=== PATIENT | female | born 1945 | race Caucasian/White ===

== ENCOUNTER → 2017-07-26 | Outpatient (CLI) | payer MEDICARE, BC ==
[~2017-07-26] MED LIST: CALCIUM PO; CHOL5000 PO; MAG PO; MULT-658 PO; OMEG1CAP39 PO; SIMV10TA3 PO; VIT1CAPS16 PO; VITA1CAP PO; [UNRECOGNIZED DRUG - OTHER] PO
[2017-07-26 12:05] LABS: BASOPHILS # (AUTO) 0.02 x10^3/uL (0-0.1); BASOPHILS % (AUTO) 0 % (0-1); EOSINOPHILS # (AUTO) 0.23 x10^3/uL (0-0.4); EOSINOPHILS % (AUTO) 4 % (1-7); LYMPHOCYTES % (AUTO) 27 % (22-44); MD NO; MEAN CORPUSCULAR HEMOGLOBIN 32.8 pg (27.0-34.8); MEAN CORPUSCULAR HGB CONC 34.3 g/dL (32.4-35.8); MEAN CORPUSCULAR VOLUME 95.7 fL (80-100); MEAN PLATELET VOLUME 7.9 fL (7.4-10.4); MONOCYTES # (AUTO) 0.65 x10^3/uL (0.2-0.8); MONOCYTES % (AUTO) 12 % (2-9); NEUTROPHILS # (AUTO) 3.26 x10^3/uL (1.8-6.8); NEUTROPHILS % (AUTO) 58 % (42-75); PLATELET COUNT 294 x10^3/uL (130-400); RED BLOOD COUNT 4.59 x10^6/uL (3.82-5.3); RED CELL DISTRIBUTION WIDTH 13.9 % (9.6-15.2)
[2017-07-26 12:08] LABS: MICROSCOPIC NOT IND
[2017-07-26 12:12] LABS: CULTURE INDICATED? NO
[2017-07-26 12:16] LABS: ANION GAP 6 mmol/L (5-15); CALCIUM 9.6 mg/dL (8.5-10.1); CHLORIDE 104 mmol/L (98-107); CREATININE 0.88 mg/dL (0.55-1.02)
== END | disposition home or self-care (01) ==
LOC: STAR 10:40
PROVIDERS: ATTEND Orthopaedic Surgery
DX: Z01.818 Encounter for other preprocedural examination (principal); M17.11 Unilateral primary osteoarthritis, right knee; R94.31 Abnormal electrocardiogram [ECG] [EKG]
CPT/HCPCS: 36415; 80048; 81003; 85025; 87081; 93005

== ENCOUNTER 2017-08-05 08:07 | Inpatient (IN) | payer MEDICARE, BC ==
[~2017-08-05] VITALS: Ht 157.5 cm; Wt 62.0 kg
[~2017-08-05 08:07] MED LIST changes: +EPINEPHRINE 1 MG/ML, 1ML ONE; +KETOROLAC 60 MG/2 ML ONE; +ROPIvacaine/PF 0.2%, 20 ML ONE; +SODIUM CHLORIDE 0.9% 100 ML ONE; +TRANEXAMIC ACID 100 MG/ML, 10ML ONE
[2017-08-05] MEDS ORDERED: LACTATED RINGERS 1,000 ML IV SCH (08:51)
[2017-08-05 08:52] VITALS: BP 142/89
[2017-08-05] MEDS ORDERED: LIDOCAINE 1%, 2ML SQ PRN (09:00)
[2017-08-05] MEDS ORDERED: KETAMINE 10 MG/ML, 20ML ONE (10:15)
[2017-08-05] MEDS ORDERED: MIDAZOLAM 1 MG/ML, 2ML ONE (10:15)
[2017-08-05] MEDS ORDERED: FENTANYL PF 250 MCG/5ML ONE (10:15)
[2017-08-05] MEDS ORDERED: PROPOFOL 10 MG/ML, 20ML ONE ×4 (10:50→12:19)
[2017-08-05] MEDS ORDERED: DEXAMETHASONE 4 MG/ML, 1ML ONE ×2 (12:27)
[2017-08-05] MEDS ORDERED: CEFAZOLIN 1,000 MG ONE ×2 (12:27)
[2017-08-05] MEDS ORDERED: ONDANSETRON 2MG/ML, 2ML ONE (12:27)
[2017-08-05] MEDS ORDERED: OXYcodone 5 MG/5 ML ORAL.SOL UDC PO PRN (12:30)
[2017-08-05] MEDS ORDERED: ACETAMINOPHEN 325 MG TABLET PO PRN (12:30)
[2017-08-05] MEDS ORDERED: HYDROcodone/APAP 7.5-325MG/15ML UDC PO PRN (12:30)
[2017-08-05] MEDS ORDERED: FENTANYL PF 100 MCG/2ML IV PRN (12:30)
[2017-08-05] MEDS ORDERED: HYDROmorphone 1 MG/ML, 1ML IV PRN ×2 (12:30→13:30)
[2017-08-05] MEDS ORDERED: ONDANSETRON 2MG/ML, 2ML IVPush PRN (12:30)
[2017-08-05] MEDS: D5%-0.45% NACL 1,000 ML IV SCH (13:24)
[2017-08-05] MEDS ORDERED: PROMETHAZINE 25 MG/ML, 1ML IM PRN (13:30)
[2017-08-05] MEDS ORDERED: SENNA/DOCUSATE TABLET PO PRN (13:30)
[2017-08-05] MEDS ORDERED: PROMETHAZINE 12.5 MG SUPP PR PRN (13:30)
[2017-08-05] MEDS ORDERED: ZOLPIDEM 5MG TABLET PO PRN (13:30)
[2017-08-05] MEDS ORDERED: DIPHENHYDRAMINE 25 MG CAPSULE PO PRN (13:30)
[2017-08-05] MEDS ORDERED: ALUMINUM/MAG/SIMETHICONE 30 ML UDC PO PRN (13:30)
[2017-08-05] MEDS ORDERED: ONDANSETRON 2MG/ML, 2ML IV PRN (13:30)
[2017-08-05] MEDS ORDERED: DIAZEPAM 5 MG TABLET PO PRN (13:30)
[2017-08-05] MEDS: OXYcodone IR 5MG TABLET PO SCH ×3 (13:30→22:19)
[2017-08-05] MEDS ORDERED: ONDANSETRON 4 MG TABLET PO PRN (13:30)
[2017-08-05] MEDS: KETOROLAC 30 MG/1 ML IV SCH ×2 (13:30→19:56)
[2017-08-05] MEDS ORDERED: OXYcodone IR 5MG TABLET PO PRN (13:30)
[2017-08-05] MEDS: ACETAMINOPHEN 650 MG/20.3 ML UDC PO SCH ×2 (13:30→21:30)
[2017-08-05] MEDS ORDERED: MAGNESIUM HYDROXIDE 8%, 30ML UDC PO PRN (13:30)
[2017-08-05] MEDS ORDERED: BISACODYL 10 MG SUPP PR PRN (13:30)
[2017-08-05] MEDS ORDERED: ACETAMINOPHEN 650 MG/20.3 ML UDC ONE (13:42)
[2017-08-05] MEDS ORDERED: OXYcodone 5 MG/5 ML ORAL.SOL UDC ONE (13:42)
[2017-08-05] MEDS ORDERED: TRANEXAMIC ACID 1,000 MG in SODIUM CHLORIDE 0.9% 100 ML IVPB ONE (13:45)
[2017-08-05 15:00] VITALS: BP 121/65
[2017-08-05] MEDS: TAMSULOSIN 0.4 MG CAP.ER.24H PO SCH (18:37)
[2017-08-05] MEDS: CEFAZOLIN PMX 1GM/50ML 50 ML IVPB SCH (19:56)
[2017-08-05] MEDS: ASPIRIN 81 MG TABLET EC PO SCH (19:56)
[2017-08-05 20:00] VITALS: BP 142/78
[2017-08-05] MEDS ORDERED: SIMVASTATIN 10 MG TABLET PO SCH (21:00)
[2017-08-05] MEDS ORDERED: ACETAMINOPHEN 500 MG TABLET ONE (22:16)
[2017-08-05] MEDS: DOCUSATE 100 MG CAPSULE PO SCH (22:20)
[2017-08-05 23:51] VITALS: BP 97/57
[2017-08-06] MEDS: D5%-0.45% NACL 1,000 ML IV SCH ×3 (00:39→09:24)
[2017-08-06] MEDS: OXYcodone IR 5MG TABLET PO SCH ×4 (01:30→13:11)
[2017-08-06] MEDS: KETOROLAC 30 MG/1 ML IV SCH ×3 (01:30→13:30)
[2017-08-06] MEDS: CEFAZOLIN PMX 1GM/50ML 50 ML IVPB SCH (04:24)
[2017-08-06 05:11] VITALS: BP 108/66
[2017-08-06] MEDS: ASPIRIN 81 MG TABLET EC PO SCH (05:54)
[2017-08-06] MEDS ORDERED: DEXAMETHASONE 4 MG/ML, 1ML IVPush SCH (06:00)
[2017-08-06] MEDS ORDERED: ACETAMINOPHEN 500 MG TABLET ONE (06:42)
[2017-08-06 07:50] VITALS: BP 112/60
[2017-08-06] MEDS: ACETAMINOPHEN 650 MG/20.3 ML UDC PO SCH (07:53)
[2017-08-06] MEDS ORDERED: MULTIVITAMINS/MINERALS TABLET PO SCH (09:00)
[2017-08-06] MEDS: TAMSULOSIN 0.4 MG CAP.ER.24H PO SCH (09:00)
[2017-08-06] MEDS: DOCUSATE 100 MG CAPSULE PO SCH (09:12)
[2017-08-06] MEDS ORDERED: OXYC5CAP2 PO (11:32)
[2017-08-06 14:24] VITALS: BP 117/63
== END 2017-08-06 15:00 | disposition home or self-care (01) | DRG 470 ==
LOC: ORIP 08:07 → 4NOR 15:21 → DCLOUNGE 08-06 14:40
PROVIDERS: ADMIT Orthopaedic Surgery; ATTEND Orthopaedic Surgery
PROC: 0SRC0J9 Replacement of Right Knee Joint with Synthetic Substitute, Cemented, Open Approach (ICD-10-PCS; principal; 2017-08-05 11:00)
DX: M17.11 Unilateral primary osteoarthritis, right knee (principal); E78.5 Hyperlipidemia, unspecified; Z60.2 Problems related to living alone; Z79.899 Other long term (current) drug therapy; Z79.1 Long term (current) use of non-steroidal anti-inflammatories (NSAID)
CPT/HCPCS: 36415; 85014; 85018; C1713; J0171; J0690; J1100; J1885; J2250; J2405; J2704; J2795; J3010; C1776